=== PATIENT | female | born 1970 | race Caucasian/White ===

== ENCOUNTER → 2018-11-07 14:22 | Emergency (ER) | payer OTHER ==
[2018-11-07 18:33] VITALS: BP 164/89
== END | disposition left against medical advice (07) ==
LOC: ED 14:22
DX: Z53.21 Procedure and treatment not carried out due to patient leaving prior to being seen by health care provider (principal)
CPT/HCPCS: 93005

== ENCOUNTER 2019-10-18 10:52 | Emergency (ER) | payer MEDICAID, OTHER ==
--- OUTSIDE RECORDS SUMMARY | 2019-10-18 11:07 | XMS REPORT | Continuity of Care Document ---
:1970 External Reference #:[id number] Author Name Kendra Mora DO (transmitted by agent of provider Jennifer Morrison) Address [address] [facility] [place] [place] [address] Care Team Providers Name Role Phone Raudel Nugent MD - Hospitalist Care Team Information Bakery Clerk [phone] [facility] - Care Team Information Bakery Clerk [phone] Mental Health Problems Active Problems Provider Date Shoulder joint pain Raudel Nugent MD Onset: 12/14/2018 Screening for malignant neoplasm of Raudel Nugent MD Onset: 12/14/2018 colon Attention-deficit hyperactivity Raudel Nugent MD Onset: 12/14/2018 disorder, unspecified type Encounter for other general examination Raudel Nugent MD Onset: 12/14/2018 Amenorrhea Raudel Nugent MD Onset: 12/14/2018 Female climacteric state Raudel Nugent MD Onset: 12/14/2018 Esophageal dysphagia Raudel Nugent MD Onset: 01/29/2019 Esophageal dysmotility Raudel Nugent MD Onset: 01/29/2019 Disturbance in speech Vi Boyce NP Onset: 02/12/2019 Posttraumatic stress disorder Raudel Nugent MD Onset: 09/19/2019 Low back pain Raudel Nugent MD Onset: 09/19/2019 Spasm Raudel Nugent MD Onset: 09/19/2019 Social History Type Date Description Comments Sex Unknown Tobacco Use Start: Unknown Never Smoked Cigarettes Smoking Status Reviewed: 09/19/19 Never Smoked Cigarettes ETOH Use Rarely consumes alcohol Tobacco Use Start: Unknown Patient has never smoked Recreational Drug Use Denies Drug Use Exercise Type/Frequency Exercises sporadically Allergies, Adverse Reactions, Alerts Active Allergies Reaction Severity Comments Date Demerol agitation 12/14/2018 Medications Active Medications SIG Qnty Indications Ordering Date Provider Cyclobenzaprine HCL 1 by mouth three 90tabs M62.451 Raudel Nugent MD 2019 10mg times a day Tablets Flonase Allergy Relief two sprays per 15.800ml J31.0 Kendra Mora, 07/24 nostril once DO 50mcg/Act Suspension daily Norethindrone Take one tablet 84tabs Saba Eriberto, 05/16/2019 0.35mg daily N.P. Tablets Premarin apply 0.5 grams 30gm Saba Eriberto, 05/16/2019 0.625mg/GM Cream nightly x 21 N.P. days and then off for 7 days, repeat monthly Tylenol 8 Hour take every 6 60tabs Raudel Nugent MD 01/30/2019 650mg hours as needed Tablets ER for pain, headache or fever Diclofenac Sodium apply 2gm twice 100gm M25.512 Raudel Nugent MD 12/14/2018 1% Gel a day as needed Amphetamine-Dextroamph take in am and 60tabs F90.9 Raudel Nugent MD 2018 etamine again before 3pm 15mg Tablets Gutnj Beniteza takes when Unknown remembers History Medications Amoxicillin/Clavulanate twice a day 5tabs Raudel Nugent MD 08/31/2019 - Potassium for 5 days 09/19/2019 500-125mg Tablets Diazepam Take 1-2 2tabs Saurav F 04/09/2019 - 5mg Tablets tablets 30 MD Vik 07/24/2019 minutes prior to MRI Immunizations Description No Information Available Vital Signs Date Vital Result Comment 09/19/2019 1:23pm Height 66 inches 5'6" Weight 172.00 lb Heart Rate 89 /min BP Systolic Sitting 148 mmHg BP Diastolic Sitting 91 mmHg Body Temperature 97.3 F O2 % BldC Oximetry 98 % BMI (Body Mass Index) 27.8 kg/m2 07/24/2019 4:19pm Height 66 inches 5'6" Weight 172.00 lb Heart Rate 91 /min BP Systolic 166 mmHg BP Diastolic 99 mmHg Body Temperature 96.7 F O2 % BldC Oximetry 98 % BMI (Body Mass Index) 27.8 kg/m2 Results Test Acquired Date Facility Test Result H/L Range Note Xray 08/16/2019 [facility] US Transvaginal [address] [place] [id number] [phone] Procedures Date Code Description Status 08/16/2019 [id number] Mammogram Completed 04/04/2019 32341 Colonoscopy Flexible Diagnostic Completed 04/04/2019 81067 Endoscopy Upper GI Biopsy Completed 04/04/2019 [id number] Colonoscopy Completed Medical Devices Description No Information Available Encounters Type Date Location Provider Dx Diagnosis Office Visit 09/19/2019 [facility] Internal Raudel Nugent MD M62.451 Contracture of 1:40p Medicine - Suite muscle, right thigh R M62.452 Contracture of muscle, left thigh M54.5 Low back pain F43.11 Post-traumatic stress disorder, acute Office Visit 07/24/2019 4:00p [facility] Internal Kendra Mora J31.0 Chronic Medicine - Suite DO rhinitis R Office Visit 05/16/2019 4:00p [facility] Saba Wei, Z01.419 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 exam (general) (routine) w/o abn findings N83.299 Other ovarian cyst, unspecified side N93.9 Abnormal uterine and vaginal bleeding, unspecified N76.1 Subacute and chronic vaginitis Assessments Date Code Description Provider 09/19/2019 M62.451 Contracture of muscle, right thigh Raudel Nugent MD 09/19/2019 M62.452 Contracture of muscle, left thigh Raudel Nugent MD 09/19/2019 M54.5 Low back pain Raudel Nugent MD 09/19/2019 F43.11 Post-traumatic stress disorder, acute Raudel Nugent MD 07/24/2019 J31.0 Chronic rhinitis Kendra Mora DO 05/16/2019 Z01.419 Encounter for gynecological examination Arturo Lopez.Cynthia (general) (routine) without abnormal findings 05/16/2019 N83.299 Other ovarian cyst, unspecified side Saba Wei N.P. 05/16/2019 N93.9 Abnormal uterine and vaginal bleeding, Saba Wei N.P. unspecified 05/16/2019 N76.1 Subacute and chronic vaginitis Colton LopezP. 04/04/2019 Z12.11 Encounter for screening for malignant Jeremiah Carter MD neoplasm of colon 04/04/2019 K21.0 Gastro-esophageal reflux disease with Jeremiah Carter MD esophagitis 04/04/2019 K22.10 Ulcer of esophagus without bleeding Jeremiah Carter MD 04/04/2019 K44.9 Diaphragmatic hernia without obstruction or Jeremiah Carter MD gangrene Plan of Treatment Future Appointment(s):10/25/2019 1:00 pm - Raudel Nugent MD at [facility] Internal Medicine - Suite R03/10/2019 - Raudel Nugent, MDM62.451 Contracture of muscle, right thighNew Medication:Cyclobenzaprine HCL 10 mg - 1 by mouth three times a dayNew Therapy:Physical TherapyComments:Please stop the red bull and try to get more sleep!!!We will refer to Physical Therapy. Continue themuscle relaxerWe will check your electrolytes. Stay well hydrated.M62.452 Contracture of muscle, left cpuyyU33.5 Low back painF43.11 Post-traumatic stress disorder, acuteReferral:[facility], Mental Health/Counselor Functional Status Description No Information Available Mental Status Description No Information Available Referrals Refer to Reason for Referral Status Appt Date [facility] anxiety, ?PTSD Created [address] [place] [address] [phone] Emanuel Marina MD problems swallowing food and now Received Partial water; hx bernardo [address] [place], [place] [id number] [phone]
--- OUTSIDE RECORDS SUMMARY | 2019-10-18 11:07 | XMS REPORT | Continuity of Care Document ---
:1970 External Reference #:[id number] Author Name Raudel Nugent MD (transmitted by agent of provider Jennifer Morrison) Address [address] [facility] [place] [address] Care Team Providers Name Role Phone Raudel Nugent MD - Hospitalist Care Team Information Instructional Designer [phone] [facility] Health - Care Team Information Instructional Designer Mental Health Problems Active Problems Provider Date [...] daily Norethindrone Take one tablet 84tabs Saba Wei, 05/16/2019 0.35mg daily N.P. Tablets Premarin apply 0.5 grams 30gm Saba Eriberto, 05/16/2019 0.625mg/GM Cream nightly x 21 N.P. days and then off for 7 days, repeat monthly Tylenol 8 Hour take every 6 60tabs aRudel Nugent MD 01/30/2019 650mg hours as needed [...] Test Result H/L Range Note Xray 08/16/2019 [facility] US Transvaginal [address] [place] [address] [phone] Procedures Date Code Description Status 08/16/2019 [id number] Mammogram Completed 04/04/2019 81677 Colonoscopy Flexible Diagnostic Completed 04/04/2019 75846 Endoscopy Upper GI Biopsy Completed 04/04/2019 [id number] Colonoscopy Completed Medical Devices Description No Information Available Encounters Type Date Location Provider Dx Diagnosis Office Visit 09/19/2019 [facility] Internal Raudel Nugent MD M62.451 Contracture of 1:40p Medicine - Suite muscle, right thigh R M62.452 Contracture of muscle, left thigh M54.5 Low back pain F43.11 Post-traumatic stress disorder, acute Office Visit 05/16/2019 4:00p [facility] Saba Wei, Z01.419 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 exam (general) (routine) w/o abn findings N83.299 Other ovarian cyst, unspecified side N93.9 Abnormal uterine and vaginal bleeding, unspecified N76.1 Subacute and chronic vaginitis Office Visit 03/27/2019 10:00a [facility] Saurav F M75.52 Bursitis of at Priscilla Chery MD left shoulder M75.81 Other shoulder lesions, right shoulder Assessments Date Code Description Provider 09/19/2019 M62.451 Contracture of muscle, right thigh Raudel Nugent MD 09/19/2019 M62.452 Contracture of muscle, left thigh Raudel Nugent MD 09/19/2019 M54.5 Low back pain Raudel Nugent MD 09/19/2019 F43.11 Post-traumatic stress disorder, acute Raudel Nugent MD 07/24/2019 J31.0 Chronic rhinitis Kendra Mora, 05/16/2019 Z01.419 Encounter for gynecological examination Saba Wei N.P. (general) (routine) without abnormal findings 05/16/2019 N83.299 Other ovarian cyst, unspecified side Saba Wei N.P. 05/16/2019 N93.9 Abnormal uterine and vaginal bleeding, Saba Wei N.P. unspecified 05/16/2019 N76.1 Subacute and chronic vaginitis Saba Wei N.P. 04/04/2019 Z12.11 Encounter for screening for malignant Jeremiah Carter MD neoplasm of colon 04/04/2019 K21.0 Gastro-esophageal reflux disease with Jeremiah Carter MD esophagitis 04/04/2019 K22.10 Ulcer of esophagus without bleeding Jeremiah Carter MD 04/04/2019 K44.9 Diaphragmatic hernia without obstruction or Jeremiah Carter MD gangrene 03/27/2019 M75.52 Bursitis of left shoulder Saurav Chery MD 03/27/2019 M75.81 Other shoulder lesions, right shoulder Saurav Chery MD Plan of Treatment 07/24/2019 - Kendra Mora, DOJ31.0 Chronic rhinitisNew Medication:Flonase Allergy Relief 50 mcg/Act - two sprays per nostril once dailyComments:I would take the antibiotic as prescribed by urgent careReferral:Emanuel Marina MD, Otolaryngology Functional Status Description No Information Available Mental Status Description No Information Available Referrals Refer to Dr Reason for Referral Status Appt Date [facility] anxiety, ?PTSD Created [address] [place] [address] [phone] Emanuel Marina MD problems swallowing food and now Received Partial water; hx bernardo [address] [place], [place] [id number] [phone] Sintia Mayen, [facility] age appropriate colon cancer screening Sent Preferred doctor is no longer at that office 04/05 [address] [place], [place] [id number] [phone]
[2019-10-18 11:31] VITALS: BP 00/0
--- NOTE | 2019-10-18 17:01 | ED ---
Throat Pain/Nasal Congestion - HPI Summary HPI Summary: Pt. is a 49 y.o female who presents to the ER for dental pain x several days. Pt. states she was schedule for a root canal but it was cancelled. Pt. states she finished an antibx a last week and pt. to tooth started again this week. Denies fever, chills. No significant past medical hx. Pt. states her dentist left the country indefinably and is trying to find a new dentist. Has been rotating tylenol and motrin without relief of pain. - History of Current Complaint Chief Complaint: EDDentalPain Time Seen by Provider: 10/18/19 11:09 Hx Obtained From: Patient - Allergies/Home Medications Allergies/Adverse Reactions: Allergies Allergy/AdvReac Type Severity Reaction Status Date / Time meperidine [From Demerol] Allergy Agitation Verified 10/18/19 10:56 Home Medications: Home Medications Acetaminophen [Tylenol Arthritis] 650 mg PO Q6H PRN 02/26/19 [History Confirmed 03/13/19] Amphetamine/Dextroamph ER(NF) [Adderal XR (NF)] 15 mg PO BID 02/26/19 [History Confirmed 03/13/19] Diclofenac 1% GEL (NF) [Voltaren 1% GEL (NF)] 1 applic TOPICAL BID 02/26/19 [ History Confirmed 03/13/19] Acetaminophen/Diphenhydramine [Tylenol Pm Ex-Strength Caplet] 2 each PO BEDTIME PRN 04/04/19 [History Confirmed 04/04/19] Hydrocodone/Acetaminophen [Hydrocodone-Acetamin 5-325 mg] 1 each PO Q6H #8 tablet MDD 4 10/18/19 [Rx] clindamycin HCL [Clindamycin HCl] 300 mg PO QID #40 capsule 10/18/19 [Rx] PMH/Surg Hx/FS Hx/Imm Hx Previously Healthy: Yes Endocrine/Hematology History: Denies: Hx Diabetes Cardiovascular History: Denies: Hx Pacemaker/ICD History: Denies: Hx Renal Disease Sensory History: Denies: Hx Legally Blind, Hx Hearing Aid Opthamlomology History: Denies: Hx Legally Blind Psychiatric History: Reports: Hx Panic Disorder Infectious Disease History: No Infectious Disease History: Denies: Traveled Outside the [place] in Last 30 Days - Family History Known Family History: Positive: Non-Contributory Negative: Diabetes - Social History Occupation: Employed Full-time Lives: With Family Alcohol Use: None Substance Use Type: Reports: None Hx Tobacco Use: No Smoking Status (MU): Never Smoked Tobacco Review of Systems Constitutional: Negative Negative: Fever, Chills Positive: Dental Pain Gastrointestinal: Negative Negative: Vomiting, Nausea Neurological/Mental Status: Negative All Other Systems Reviewed And Are Negative: Yes Physical Exam Triage Information Reviewed: Yes Vital Signs On Initial Exam: Initial Vitals Temp Pulse Resp BP Pulse Ox 97.6 F 103 19 179/88 99 10/18/19 10:52 10/18/19 10:52 10/18/19 10:52 10/18/19 10:52 10/18/19 10:52 Vital Signs Reviewed: Yes Appearance: Positive: Well-Appearing - Pt. sitting up in bed in NAD. Skin: Positive: Warm, Dry Head/Face: Positive: Normal Head/Face Inspection Eyes: Positive: Normal, EOMI, [place] ENT: Positive: Other - Dental kathy noted to top last right molar. Surrouding gingiva very edematous. No drainable abscess. NO swelling under tongue. No submandibular edema. No facial edema. Neck: Positive: Supple Neurological: Positive: Normal, CN Intact II-III Psychiatric: Positive: Affect/Mood Appropriate Procedures - Sedation Patient Received Moderate/Deep Sedation with Procedure: No Diagnostics - Vital Signs Vital Signs Temp Pulse Resp BP Pulse Ox 10/18/19 11:30 0 F 0 0 00/0 0 10/18/19 10:52 97.6 F 103 19 179/88 99 - Laboratory Lab Statement: Any lab studies that have been ordered have been reviewed, and results considered in the medical decision making process. EENT Course/Dx - Course Course Of Treatment: Pt. with likely dental abscess. Afebrile and well appearing. Will place on Clinda and a few tablets of lortab. 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 Pt. given a list of dentist to f.u with anne. Will return to er if sxs change or worsen. Pt. understands and agrees with plan. - Differential Diagnoses Differential Diagnoses: Dental Abscess, Dental Caries, Fractured Tooth, Gingivitis - Diagnoses Provider Diagnoses: Dental abscess Discharge ED - Sign-Out/Discharge Documenting (check all that apply): Patient Departure - Discharge Plan Condition: Good Disposition: HOME Prescriptions: clindamycin HCL [Clindamycin HCl] 300 mg PO QID #40 capsule Hydrocodone/Acetaminophen [Hydrocodone-Acetamin 5-325 mg] 1 each PO Q6H #8 tablet MDD 4 Patient Education Materials: Dental Abscess (ED) Referrals: Raudel Nugent MD [Primary Care Provider] - Additional Instructions: Please see a dentist as soon possible Take medication as directed Can continue ibuprofen as directed Return to ER for facial swelling, fever, difficulty breathing/swallowing or if concerned - Billing Disposition and Condition Condition: GOOD Disposition: Home
== END 2019-10-18 11:30 | disposition home or self-care (01) ==
LOC: ED 10:52
DX: K04.7 Periapical abscess without sinus (principal); K08.89 Other specified disorders of teeth and supporting structures
CPT/HCPCS: 99282